=== PATIENT | male | born 1995 | race African-American/Black ===

== ENCOUNTER 2018-12-05 09:34 | Emergency (ER) | payer OTHER ==
[~2018-12-05] VITALS: Ht 165.1 cm; Wt 54.4 kg
[2018-12-05 09:44] VITALS: BP 100/71
--- NOTE | 2018-12-05 09:45 | NUR ---
PT BIBLA FROM HALF-WAY FOR OTB; PT C/O OF N/V, WITH EPISODE OF VOMITTING; PT AAOX4, -SOB, NAD NOTED, VSS, PENDING MD MACDONALD
[2018-12-05] MEDS ORDERED: ONDANSETRON HCL/PF 4 MG/2 ML VIAL ONE (10:26)
[2018-12-05] MEDS ORDERED: ONDANSETRON HCL/PF 4 MG/2 ML VIAL IVP ONE (10:30)
[2018-12-05] MEDS ORDERED: IV NS 0.9% 1,000 ML BAG IV ONE (10:30)
[2018-12-05 10:32] LABS: BASOPHILS % (AUTO) 0.3 % (0.0-2.0); EOSINOPHILS % (AUTO) 0.1 % (0.0-6.0); HEMATOCRIT 51 % (39-51); HEMOGLOBIN 16.7 g/dL (13.5-17.5); LYMPHOCYTES # (AUTO) 0.5 /CMM (0.8-4.8); LYMPHOCYTES % (AUTO) 15.2 % (20.0-44.0); MEAN CORPUSCULAR HGB CONC 33 g/dl (31.0-36.0); MEAN CORPUSCULAR VOLUME 76 fL (80-96); MONOCYTES # (AUTO) 0.6 /CMM (0.1-1.30); MONOCYTES % (AUTO) 18.2 % (2.0-12.0); NEUTROPHILS # (AUTO) 2.3 /CMM (1.8-8.9); NEUTROPHILS % (AUTO) 66.2 % (43.0-81.0); PLATELET COUNT (AUTO) 268 /CMM (150-450); RED BLOOD CELL COUNT(AUTO) 6.78 MIL/uL (4.5-6.0); WHITE BLOOD COUNT (AUTO) 3.5 K/uL (4.3-11.0)
[2018-12-05 10:38] LABS: CALCIUM, SERUM 9.5 mg/dL (8.5-10.1); CREATININE 1.2 mg/dL (0.6-1.3); POTASSIUM 4.4 mmol/L (3.5-5.1)
[2018-12-05 10:45] LABS: ALBUMIN 3.2 g/dL (3.4-5.0); BILIRUBIN,DIRECT 0.1 mg/dL (0.0-0.2); BILIRUBIN,TOTAL 0.4 mg/dL (0.2-1.0); TOTAL PROTEIN, SERUM 7.9 g/dL (6.4-8.2)
[2018-12-05 10:59] LABS: LYMPHOCYTES % (MANUAL) 17 % (16-48); MONOCYTES % (MANUAL) 14 % (0-11.0); NEUTROPHILS % (MANUAL) 69 (42-76)
--- NOTE | 2018-12-05 12:37 | NUR ---
Patient discharged to home in stable condition. Written and verbal after care instructions given. Patient verbalizes understanding of instruction. IV removed. Catheter intact and site benign. Pressure and 4x4 applied to site. No bleeding noted.
== END 2018-12-05 12:39 ==
LOC: ER 09:37
DX: R11.10 Vomiting, unspecified (principal); J45.909 Unspecified asthma, uncomplicated
CPT/HCPCS: 36415; 80048; 80076; 85025; 96361; 96374; 99283; J2405; J7030

== ENCOUNTER 2020-12-19 00:21 | Emergency (ER) | payer OTHER, MEDICAID ==
[~2020-12-19] VITALS: Ht 170.2 cm; Wt 64.4 kg
--- NOTE | 2020-12-19 00:32 | NUR ---
BIBRA 89 FROM FRIEND'S HOUSE C/O OD ON FENTANYL. GIVEN 2 NARCAN SUPERINTENDENT TERMINAL. PT AWAKE AND RESPONSIVE. ER MD AT BEDSIDE FOR EVAL.
--- NOTE | 2020-12-19 00:40 | NUR ---
RECEIVED CALL FROM PT MOTHER, FELIPA LUND PLEASE CALL FOR UPDATES [phone]
[2020-12-19] MEDS ORDERED: NALO4SPR NS (04:15)
[2020-12-19 06:00] VITALS: BP 136/79
--- NOTE | 2020-12-19 06:01 | NUR ---
Patient discharged to home in stable condition. RX and Written and verbal after care instructions given. Patient verbalizes understanding of instruction.
== END 2020-12-19 06:01 | disposition home or self-care (01) ==
LOC: ER 00:23
DX: T40.601A Poisoning by unspecified narcotics, accidental (unintentional), initial encounter (principal); J45.909 Unspecified asthma, uncomplicated; Y92.89 Other specified places as the place of occurrence of the external cause

== ENCOUNTER 2023-03-20 13:12 | Emergency (ER) | payer OTHER ==
[~2023-03-20] VITALS: Ht 165.1 cm; Wt 79.4 kg
[~2023-03-20 13:12] MED LIST: NALO4SPR NS
[2023-03-20 13:21] VITALS: BP 108/72; TEMP 98.7; O2SAT 100
[2023-03-20] MEDS ORDERED: KETOROLAC TROMETHAMINE INJ 30 MG/ML VIAL ONE (13:42)
[2023-03-20] MEDS ORDERED: diphenhydrAMINE HCL 50 MG/ML VIAL ONE (13:42)
[2023-03-20] MEDS ORDERED: ACETAMINOPHEN ES 500 MG TABLET ONE (13:43)
[2023-03-20] MEDS ORDERED: METOCLOPRAMIDE HCL 10 MG/2 ML VIAL ONE (13:43)
[2023-03-20] MEDS ORDERED: KETOROLAC TROMETHAMINE INJ 30 MG/ML VIAL IV ONE (14:00)
[2023-03-20] MEDS ORDERED: ACETAMINOPHEN ES 500 MG TABLET PO ONE (14:00)
[2023-03-20] MEDS ORDERED: IV NS 0.9% 1,000 ML BAG IV ONE (14:00)
[2023-03-20] MEDS ORDERED: diphenhydrAMINE HCL 50 MG/ML VIAL IV ONE (14:00)
[2023-03-20] MEDS ORDERED: METOCLOPRAMIDE HCL 10 MG/2 ML VIAL IV ONE (14:00)
[2023-03-20] MEDS ORDERED: IBUP-1955 PO (14:41)
== END 2023-03-20 15:45 | disposition home or self-care (01) ==
LOC: ER 13:23
DX: R51.9 Headache, unspecified (principal); J45.909 Unspecified asthma, uncomplicated; F41.9 Anxiety disorder, unspecified; F20.9 Schizophrenia, unspecified
CPT/HCPCS: 99284; 96374; 96375; 96361; J1200; J2765; J1885; J7030

== ENCOUNTER 2024-07-19 17:20 | Emergency (ER) | payer OTHER ==
[~2024-07-19] VITALS: Ht 165.1 cm; Wt 88.5 kg
[~2024-07-19 17:20] MED LIST changes: +IBUP-1955 PO
[2024-07-19] MEDS: IV NS 0.9% 1,000 ML BAG IV ONE (18:30)
[2024-07-19] MEDS: ONDANSETRON HCL/PF 4 MG/2 ML VIAL IVP ONE (18:30)
[2024-07-19 19:31] LABS: BASOPHILS % (AUTO) 0.3 % (0.0-2.0); EOSINOPHILS % (AUTO) 0.4 % (0.0-6.0); HEMATOCRIT 48 % (39-51); HEMOGLOBIN 15.6 g/dL (13.5-17.5); LYMPHOCYTES # (AUTO) 1.1 K/uL (0.8-4.8); LYMPHOCYTES % (AUTO) 18.1 % (20.0-44.0); MEAN CORPUSCULAR HEMOGLOBIN 25 PG (26.0-33.0); MEAN CORPUSCULAR HGB CONC 33 g/dl (31.0-36.0); MEAN CORPUSCULAR VOLUME 76 fL (80-96); MONOCYTES # (AUTO) 0.4 K/uL (0.1-1.30); MONOCYTES % (AUTO) 7.4 % (2.0-12.0); NEUTROPHILS # (AUTO) 4.5 K/uL (1.8-8.9); NEUTROPHILS % (AUTO) 73.8 % (43.0-81.0); PLATELET COUNT (AUTO) 236 K/uL (150-450); RED BLOOD CELL COUNT(AUTO) 6.32 MIL/uL (4.5-6.0); RED CELL DISTRIBUTION WIDTH 16.2 % (11.5-15.0)
[2024-07-19] MEDS ORDERED: ONDANSETRON HCL/PF 4 MG/2 ML VIAL ONE (19:46)
[2024-07-19 19:56] LABS: CALCIUM, SERUM 9.8 mg/dL (8.5-10.1); CREATININE 1.1 mg/dL (0.6-1.3)
[2024-07-19 20:00] LABS: ALBUMIN 4.8 g/dL (3.4-5.0); BILIRUBIN,DIRECT 0.2 mg/dL (0.0-0.2); BILIRUBIN,TOTAL 0.6 mg/dL (0.2-1.0); TOTAL PROTEIN, SERUM 9.3 g/dL (6.4-8.2)
[2024-07-19 20:02] LABS: ALBUMIN 4.8 g/dL (3.4-5.0); BILIRUBIN,TOTAL 0.6 mg/dL (0.2-1.0); TOTAL PROTEIN, SERUM 9.3 g/dL (6.4-8.2)
[2024-07-19] MEDS ORDERED: NALO4SPR NS (21:26)
[2024-07-19] MEDS ORDERED: ONDA4TAB11 PO (21:26)
[2024-07-19 22:17] VITALS: BP 140/95; TEMP 98.1; O2SAT 98
== END 2024-07-19 22:18 | disposition home or self-care (01) ==
LOC: ER 17:25
DX: T40.601A Poisoning by unspecified narcotics, accidental (unintentional), initial encounter (principal); F19.11 Other psychoactive substance abuse, in remission; F20.9 Schizophrenia, unspecified; J45.909 Unspecified asthma, uncomplicated; R11.2 Nausea with vomiting, unspecified; F41.9 Anxiety disorder, unspecified; Y92.89 Other specified places as the place of occurrence of the external cause
CPT/HCPCS: 99283; 96374; 96361; 85025; 83690; 36415; 80053; 80076; J2405; J7030

== ENCOUNTER 2024-09-01 00:30 | Emergency (ER) | payer OTHER ==
[~2024-09-01 00:30] MED LIST changes: +ONDA4TAB11 PO
== END 2024-09-01 03:31 | disposition left against medical advice (07) ==
LOC: ER 00:36
DX: G43.909 Migraine, unspecified, not intractable, without status migrainosus (principal); Z53.21 Procedure and treatment not carried out due to patient leaving prior to being seen by health care provider